=== PATIENT | female | born 1955 | race Caucasian/White ===

== ENCOUNTER 2023-06-24 14:02 | Emergency (ER) | payer MEDICARE, MEDICAID ==
[~2023-06-24] VITALS: Ht 170.2 cm; Wt 63.0 kg
[2023-06-24 14:10] VITALS: O2SAT 100
[2023-06-24] MEDS: IBUPROFEN 400MG TABLET PO ONE (14:42)
[2023-06-24] MEDS ORDERED: KETOROLAC 15MG/ML VIAL IM ONE (15:45)
[2023-06-24] MEDS ORDERED: NAPR-681 MT (16:38)
[2023-06-24 16:57] VITALS: BP 180/73; PULSE 72; RESP 18; TEMP 98.1
== END 2023-06-24 16:57 | disposition home or self-care (01) ==
LOC: ER 14:02
DX: M25.551 Pain in right hip (principal); E11.9 Type 2 diabetes mellitus without complications; Z96.653 Presence of artificial knee joint, bilateral; Z88.0 Allergy status to penicillin; W18.39XA Other fall on same level, initial encounter; Y93.89 Activity, other specified; Y92.89 Other specified places as the place of occurrence of the external cause; Y99.8 Other external cause status
CPT/HCPCS: 99284; 73502; 73562; 73590; J1885

== ENCOUNTER 2025-02-23 08:16 | Inpatient (IN) | payer MEDICARE, MEDICAID ==
[~2025-02-23] VITALS: Ht 162.6 cm; Wt 68.2 kg
[~2025-02-23 08:16] MED LIST: NAPR-681 MT
[2025-02-23 08:18] VITALS: O2SAT 99
[2025-02-23] MEDS: ASPIRIN 81MG TABLET PO ONE (08:50)
[2025-02-23 09:25] LABS: BASOPHILS % 0.5 % (0.0-2.0); EOSINOPHILS % 1.6 % (0.0-5.0); HEMATOCRIT. 37.3 % (36.0-48.0); HEMOGLOBIN. 12.5 g/dL (12.0-16.0); LYMPHOCYTES % 23.0 % (20.0-50.0); MEAN PLATELET VOLUME 7.2 fl (7.4-10.4); MONOCYTES % 7.0 % (2.0-8.0); NEUTROPHILS % 67.9 % (40.0-76.0); PLATELET 180 x1000/uL (130-400); RED BLOOD CELL COUNT 4.06 mill/uL (4.2-5.4); RED CELL DISTRIBUTION WIDTH 12.4 % (11.6-14.6)
[2025-02-23 09:31] LABS: INR 1.0
[2025-02-23 09:37] LABS: CREATININE 0.8 mg/dL (0.6-1.0); UREA NITROGEN BLOOD 11 mg/dL (9-23)
[2025-02-23 09:43] LABS: TROPONIN I HIGH SENSITIVITY 338 ng/L (3.0-34)
[2025-02-23] MEDS: ENOXAPARIN 80MG/0.8ML SYR SUBCUT SCH (09:53)
[2025-02-23] MEDS: IOHEXOL-350 100 ML BOTTLE ONE (10:49)
[2025-02-23 11:58] LABS: TROPONIN I HIGH SENSITIVITY 428 ng/L (3.0-34)
[2025-02-23] MEDS ORDERED: ACETAMINOPHEN 325MG TABLET PO PRN (12:00)
[2025-02-23] MEDS ORDERED: IPRATROPIUM/ALBUTEROL 0.5-3(2.5)MG/3ML NEB HHN PRN (12:00)
[2025-02-23] MEDS ORDERED: CLONIDINE 0.1MG TABLET PO PRN (12:00)
[2025-02-23] MEDS: AMLODIPINE 10MG TABLET PO SCH (12:46)
[2025-02-23] MEDS: CARVEDILOL 6.25 MG TABLET PO SCH (12:46)
[2025-02-23 13:02] LABS: LDL CHOLESTEROL 129.0 mg/dL (5-100); TRIGLYCERIDE 373.0 mg/dL (0-150)
[2025-02-23 13:36] LABS: TROPONIN I HIGH SENSITIVITY 590 ng/L (3.0-34)
[2025-02-23 13:41] VITALS: BP 80/44; PULSE 79; RESP 15; TEMP 37.0296
[2025-02-23] MEDS ORDERED: DEXTROSE 50% WATER 50ML SYRINGE IV PRN (15:15)
[2025-02-23 16:00] VITALS: BP 120/56; PULSE 76; RESP 15; TEMP 36.8; O2SAT 98
[2025-02-23] MEDS: BLOOD SUGAR DIAGNOSTIC STRIP TEST SCH (16:44)
[2025-02-23] MEDS: INSULIN LISPRO 100 UNITS/ML SUBCUT SCH (16:50)
[2025-02-23 20:00] VITALS: BP 124/74; PULSE 77; RESP 14; TEMP 36.7; O2SAT 94
[2025-02-23] MEDS: MORPHINE SULFATE 10 MG/ML INJ (NOT FOR IM USE) IV PRN (21:48)
[2025-02-24] VITALS: BP 100/64; PULSE 75; RESP 17; TEMP 36.8; O2SAT 95
[2025-02-24 00:41] LABS: TROPONIN I HIGH SENSITIVITY 4069 ng/L (3.0-34)
[2025-02-24 04:00] VITALS: BP 104/65; PULSE 75; RESP 13; TEMP 36.6; O2SAT 95
[2025-02-24 07:32] LABS: BASOPHILS % 0.5 % (0.0-2.0); EOSINOPHILS % 1.6 % (0.0-5.0); HEMATOCRIT. 37.2 % (36.0-48.0); HEMOGLOBIN. 12.4 g/dL (12.0-16.0); LYMPHOCYTES % 35.2 % (20.0-50.0); MEAN PLATELET VOLUME 7.4 fl (7.4-10.4); MONOCYTES % 7.7 % (2.0-8.0); NEUTROPHILS % 55.0 % (40.0-76.0); PLATELET 176 x1000/uL (130-400); RED BLOOD CELL COUNT 4.00 mill/uL (4.2-5.4); RED CELL DISTRIBUTION WIDTH 12.6 % (11.6-14.6)
[2025-02-24 07:45] LABS: CREATININE 0.7 mg/dL (0.6-1.0); UREA NITROGEN BLOOD 12 mg/dL (9-23)
[2025-02-24 08:00] VITALS: BP 120/61; PULSE 71; RESP 16; TEMP 36.6; O2SAT 98
[2025-02-24] MEDS ORDERED: IODIXANOL 320MG/ML 100 ML BOTTLE IV ONE ×2 (10:42→12:02)
[2025-02-24] MEDS ORDERED: DIPHENHYDRAMINE 50MG/ML VIAL ONE (10:42)
[2025-02-24] MEDS ORDERED: HEPARIN 1000 UNITS/ML 10ML ONE ×2 (10:42→11:47)
[2025-02-24] MEDS ORDERED: LIDOCAINE HCL 1% 20ML VIAL ONE (10:42)
[2025-02-24] MEDS ORDERED: VERAPAMIL HCL 2.5 MG/1 ML 2ML VIAL IV ONE (10:42)
[2025-02-24] MEDS ORDERED: MIDAZOLAM HCL 2 MG/2 ML VIAL ONE (11:17)
[2025-02-24] MEDS ORDERED: FENTANYL CITRATE/PF 50MCG/ML 2ML VIAL ONE (11:18)
[2025-02-24 12:00] VITALS: BP 94/70; PULSE 76; RESP 13; TEMP 36.6; O2SAT 99
[2025-02-24] MEDS ORDERED: CLOPIDOGREL 75MG TABLET ONE (12:04)
[2025-02-24] MEDS ORDERED: ASPIRIN 325MG TABLET ONE (12:05)
[2025-02-24] MEDS ORDERED: ATROPINE SULFATE 1MG/10ML SYR IV PRN (12:30)
[2025-02-24] MEDS ORDERED: NALOXONE HCL 0.4MG/ML VIAL IV PRN (12:30)
[2025-02-24] MEDS: SODIUM CHLORIDE 0.45% 500 ML IV ONE (13:03)
[2025-02-24] MEDS ORDERED: TRAM50TA3 MT (13:24)
[2025-02-24] MEDS ORDERED: [UNRECOGNIZED DRUG - OTHER] GT (13:25)
[2025-02-24] MEDS ORDERED: ASPI-1406 PO (13:35)
[2025-02-24] MEDS ORDERED: FLUO10CA PO (13:35)
[2025-02-24] MEDS ORDERED: [UNRECOGNIZED DRUG - CODE] (13:35)
[2025-02-24] MEDS ORDERED: MELO-105 PO (13:35)
[2025-02-24] MEDS ORDERED: CHOL-36 (13:35)
[2025-02-24] MEDS: ACETAMINOPHEN 325MG TABLET PO PRN (15:36)
[2025-02-24 16:00] VITALS: BP 104/73; PULSE 74; RESP 19; TEMP 36.8; O2SAT 98
[2025-02-24] MEDS: DIPHENHYDRAMINE 50MG/ML VIAL IV PRN (18:47)
[2025-02-24] MEDS: ONDANSETRON HCL 4MG/2ML INJ IV PRN (18:47)
[2025-02-24 20:00] VITALS: BP 111/54; PULSE 80; RESP 20; TEMP 36.9; O2SAT 95
[2025-02-25] VITALS: BP 97/63; PULSE 71; RESP 20; TEMP 36.9; O2SAT 97
[2025-02-25] MEDS ORDERED: IOHEXOL-350 100 ML BOTTLE ONE (00:08)
[2025-02-25 04:00] VITALS: BP 111/54; PULSE 80; RESP 20; TEMP 36.9; O2SAT 95
[2025-02-25 05:14] LABS: CLARITY URINE CLEAR (CLEAR); COLOR URINE YELLOW (YELLOW)
[2025-02-25 05:15] LABS: GLUCOSE URINE 1+ (NEGATIVE); KETONES URINE 1+ (NEGATIVE); LEUKOCYTE ESTERASE URINE 1+ (NEGATIVE); NITRITE URINE NEGATIVE (NEGATIVE); OCCULT BLOOD URINE NEGATIVE (NEGATIVE); PH URINE 5.5 (4.5-8.0); PROTEIN URINE NEGATIVE (NEGATIVE); SPECIFIC GRAVITY URINE 1.072 (1.005-1.030); UROBILINOGEN URINE 1.0 E.U./dL (0.2-1.0)
[2025-02-25 05:21] LABS: BACTERIA URINE TRACE; RBC URINE 0-2 /hpf (0-2); SQUAMOUS EPITHELIAL CELL URINE 2+ /lpf (RARE/1+)
[2025-02-25 05:50] LABS: *AMPHETAMINES SCREEN URINE NEGATIVE (NEGATIVE); *BARBITURATES SCREEN URINE NEGATIVE (NEGATIVE); *BENZODIAZEPINES SCREEN URINE PRESUMPTIVE POSITIVE (NEGATIVE); *COCAINE SCREEN URINE NEGATIVE (NEGATIVE); CANNABINOID URINE SCREEN NEGATIVE (NEGATIVE); ECSTASY MDMA SCREEN URINE NEGATIVE (NEGATIVE); METHADONE URINE SCREEN NEGATIVE (NEGATIVE); OPIATES URINE SCREEN PRESUMPTIVE POSITIVE (NEGATIVE); PHENCYCLIDINE URINE SCREEN NEGATIVE (NEGATIVE)
[2025-02-25 08:00] VITALS: BP 116/59; PULSE 68; RESP 17; TEMP 36.4; O2SAT 93
[2025-02-25 08:03] LABS: INR 1.0
[2025-02-25 08:08] LABS: BASOPHILS % 0.3 % (0.0-2.0); CREATININE 0.9 mg/dL (0.6-1.0); EOSINOPHILS % 0.5 % (0.0-5.0); HEMATOCRIT. 36.3 % (36.0-48.0); HEMOGLOBIN. 12.1 g/dL (12.0-16.0); LYMPHOCYTES % 18.5 % (20.0-50.0); MEAN PLATELET VOLUME 7.3 fl (7.4-10.4); MONOCYTES % 6.4 % (2.0-8.0); NEUTROPHILS % 74.3 % (40.0-76.0); PLATELET 181 x1000/uL (130-400); RED BLOOD CELL COUNT 3.92 mill/uL (4.2-5.4); RED CELL DISTRIBUTION WIDTH 12.5 % (11.6-14.6); UREA NITROGEN BLOOD 18 mg/dL (9-23)
[2025-02-25] MEDS: CLOPIDOGREL 75MG TABLET PO SCH (09:33)
[2025-02-25] MEDS: ASPIRIN 81MG TABLET PO SCH (09:33)
[2025-02-25 12:00] VITALS: BP 100/57; PULSE 69; RESP 18; TEMP 36.8; O2SAT 98
[2025-02-25 16:00] VITALS: BP 112/56; PULSE 64; RESP 19; TEMP 36.8; O2SAT 98
[2025-02-25 20:00] VITALS: BP 106/57; PULSE 77; RESP 15; TEMP 36.7; O2SAT 97
[2025-02-25] MEDS: ENOXAPARIN 40MG/0.4ML SYR SUBCUT SCH (20:46)
[2025-02-26] VITALS: BP 109/50; PULSE 75; RESP 9; TEMP 36.8; O2SAT 96
[2025-02-26 04:00] VITALS: BP 94/55; PULSE 72; RESP 11; TEMP 36.9; O2SAT 96
[2025-02-26 06:47] LABS: BASOPHILS % 0.5 % (0.0-2.0); EOSINOPHILS % 1.8 % (0.0-5.0); HEMATOCRIT. 34.4 % (36.0-48.0); HEMOGLOBIN. 11.5 g/dL (12.0-16.0); LYMPHOCYTES % 34.1 % (20.0-50.0); MEAN PLATELET VOLUME 7.2 fl (7.4-10.4); MONOCYTES % 9.3 % (2.0-8.0); NEUTROPHILS % 54.3 % (40.0-76.0); PLATELET 169 x1000/uL (130-400); RED BLOOD CELL COUNT 3.68 mill/uL (4.2-5.4); RED CELL DISTRIBUTION WIDTH 12.4 % (11.6-14.6)
[2025-02-26 07:11] LABS: CREATININE 0.8 mg/dL (0.6-1.0); UREA NITROGEN BLOOD 16 mg/dL (9-23)
[2025-02-26] MEDS ORDERED: COR6 PO (12:27)
[2025-02-26] MEDS ORDERED: CLOP-31 PO (12:27)
[2025-02-26] MEDS ORDERED: AMLO10TA80 PO (12:27)
[2025-02-26] MEDS ORDERED: METF-414 MT (12:27)
[2025-02-26] MEDS ORDERED: ASPI-1160 PO (12:27)
[2025-02-26 13:34] VITALS: BP 113/68; PULSE 77; RESP 20; TEMP 98
== END 2025-02-26 14:30 | disposition home or self-care (01) | DRG 321 ==
LOC: ER 08:16 → 3WST 11:08 → EDBEDREQTM 11:16 → EDBEDREQ 11:16
PROVIDERS: ADMIT Internal Medicine; ATTEND Internal Medicine
PROC: 027035Z Dilation of Coronary Artery, One Artery with Two Drug-eluting Intraluminal Devices, Percutaneous Approach (ICD-10-PCS; principal; 2025-02-24)
PROC: 4A023N7 Measurement of Cardiac Sampling and Pressure, Left Heart, Percutaneous Approach (ICD-10-PCS; 2025-02-24)
PROC: B211YZZ Fluoroscopy of Multiple Coronary Arteries using Other Contrast (ICD-10-PCS; 2025-02-24)
PROC: B240ZZ3 Ultrasonography of Single Coronary Artery, Intravascular (ICD-10-PCS; 2025-02-24)
DX: I21.4 Non-ST elevation (NSTEMI) myocardial infarction (principal); I63.9 Cerebral infarction, unspecified; E11.9 Type 2 diabetes mellitus without complications; I16.0 Hypertensive urgency; I11.0 Hypertensive heart disease with heart failure; I50.9 Heart failure, unspecified; E78.5 Hyperlipidemia, unspecified; R29.701 NIHSS score 1; I25.10 Atherosclerotic heart disease of native coronary artery without angina pectoris; R29.810 Facial weakness; Z88.0 Allergy status to penicillin; Z79.02 Long term (current) use of antithrombotics/antiplatelets; Z79.82 Long term (current) use of aspirin
CPT/HCPCS: 36415; 70496; 70498; 70551; 71045; 71275; 80048; 80061; 80305; 81003; 82962; 83036; 83880; 84484; 85025; 85347; 85379; 92928; 92978; 93005; 93306; 93458; 96372; 97162; 97166; 99291; A4606; C1725; C1753; C1769; C1874; C1887; C1893; J1200; J1644; J1650; J1815; J2003; J2250; J2270; J2405; J3010; J3490; Q9967